=== PATIENT | female | born 1950 | race Caucasian/White ===

== ENCOUNTER → 2019-05-24 09:40 | Outpatient (CLI) | payer MEDICARE, OTHER, SELFPAY ==
[2019-05-24 10:13] LABS: BUN Creatinine Ratio 17.1 (6-22); Blood Urea Nitrogen 12 mg/dL (7-17); Estimated Glomerular Filt Rate > 60.0 mL/min (>60)
--- NOTE | 2019-05-24 10:17 | DI.CT.S_ITS ---
PROCEDURE: CT ABDOMEN PELVIS WO/W CON INDICATIONS: Personal history of diseases of urinary system. Gross hematuria TECHNIQUE: Optional 5 mm thick noncontrast images acquired from the diaphragm to the symphysis pubis. After the administration of intravenous contrast, 5 mm thick images acquired from the diaphragm to the symphysis pubis after a 10-minute delay. 2 mm thick coronal and sagittal reformats were then performed of the kidneys and ureters. For radiation dose reduction, the following was used: automated exposure control, adjustment of mA and/or kV according to patient size. COMPARISON: Outside Film, CT, CT IVP, 06/21/2018, 14:49. FINDINGS: Image quality: Excellent. Lung bases: Lung bases are clear. Heart size is normal. Urinary system: Both kidneys are normal in size, without hydronephrosis or nephrolithiasis on pre-contrast images. No perinephric fat stranding. There is normal bilateral renal enhancement. Renal calyces appear normal in morphology when filled with contrast. Opacified portions of both ureters demonstrate normal caliber. Bladder wall thickness is normal overall, but at the anterior midline of the bladder wall there is slight nodularity, most convincingly demonstrated on the axial postcontrast imaging centered on series 3 image 146. No calcified bladder stones. Other solid organs: Liver is normal in size and enhancement. Gallbladder has been previously resected. Biliary system is non dilated. Pancreas enhances normally. Spleen is normal in size and enhancement. No adrenal nodules. Peritoneum and bowel: Bowel loops demonstrate normal wall thickness and caliber. No free fluid or air. Nodes and vessels: No retroperitoneal or mesenteric adenopathy by size criteria. Aorta and inferior vena cava are normal in size. Abdominal wall: No ventral hernias. Pelvis: No pathologic free pelvic fluid. No inguinal hernias or adenopathy. Bones: No suspicious bony lesions. No vertebral body compression fractures. IMPRESSION: The urinary tract appears free of calculus. A renal cortical mass lesion is not found. Along the anterior midline of the bladder there is slight irregularity with nodularity measuring up to 6 x 8 mm in this area. Depending on the clinical status followup by direct visualization of this region by cystoscopy may be warranted. Dictated by: Isai Kelly M.D. on 05/24/2019 at 12:06 Approved by: Isai Kelly M.D. on 05/24/2019 at 12:12
== END ==
PROVIDERS: PCP Family Medicine; Visit Provider Urology
DX: R31.0 Gross hematuria (principal); Z87.448 Personal history of other diseases of urinary system; Z90.49 Acquired absence of other specified parts of digestive tract
CPT/HCPCS: 36415; 74178; 82565; 84520; Q9967

== ENCOUNTER 2021-10-23 11:12 | Outpatient (CLI) | payer MEDICARE, OTHER, SELFPAY | END 2021-10-27 09:12 | disposition home or self-care (01) | LOC: PHYS 11:15 | PROVIDERS: Family Provider Physician Assistant; PCP Physician Assistant; Referring Provider Physician Assistant; Visit Provider Physician Assistant | DX: M79.605 Pain in left leg (principal) | CPT/HCPCS: 95886; 95909 ==

== ENCOUNTER → 2022-03-13 10:03 | Outpatient (CLI) | payer MEDICARE, OTHER, SELFPAY ==
[2022-03-13 11:15] LABS: COVID19 -Nasal RAPID Negative (Negative)
== END ==
PROVIDERS: Family Provider Physician Assistant; PCP Physician Assistant; Visit Provider Surgery
DX: Z01.812 Encounter for preprocedural laboratory examination (principal); Z20.822 Contact with and (suspected) exposure to COVID-19
CPT/HCPCS: 87635; C9803

== ENCOUNTER 2022-03-16 07:41 | Day surgery (SDC) | payer MEDICARE, OTHER, SELFPAY ==
--- NOTE | 2022-03-16 | PATH_ITS ---
[facility] Accession Number: [id number] . 01 Material submitted: . colon - COLON BIOPSIES . 01 Diagnosis: Colon, Biopsy: Colonic mucosa with benign lymphoid aggregates. No evidence of colitis. No dysplasia or malignancy. MRV 03/19/2022 1402 Local . 01 Electronically signed: . Veena Benitez MD, Pathologist NPI- [id number] . 01 Gross description: . The specimen is received in formalin, labeled with the patient's name and colon biopsies, and consists of a single irregular ordonez soft tissue fragment measuring 0.4 cm in greatest dimension. Submitted entirely in cassette A1. ([id number]) /FRR 03/19/2022 0323 Local . 01 Pathologist provided ICD-10: K59.00, K63.89, R19.7 . 01 CPT . 761167 Specimen Comment: A courtesy copy of this report has been sent to [phone] Performed at: 01 [facility] [address] [place] [address], [place], [place] [id number] MD Andi Paige MD Phone: [phone]
[2022-03-16 08:01] VITALS: BMI 22.9
[2022-03-16 08:16] VITALS: BP 147/84; PULSE 68; RESP 18; TEMP 36.9; O2SAT 98
[2022-03-16] MEDS: SODIUM CHLORIDE 0.9% 1,000 ML 84 ML IV (08:38)
--- NOTE | 2022-03-16 08:41 | PM.HP.1 ---
History of Present Illness History of Present Illness Date Patient Seen: 03/16/22 Time Patient Seen: 08:41 Chief complaint: Colonoscopy Narrative: Diarrhea Patient History Family & Social History Social History: household members spouse Tobacco & Substance use: Smoking Status Former smoker alcohol intake current alcohol intake frequency 0-2 drinks per day Substance Use Type does not use Meds Home Medications and Allergies Home Medications Medication Instructions Recorded Confirmed Type albuterol sulfate 90 mcg/actuation 1 - 2 puff INH Q4-6H PRN ##0 07/20/12 03/16/22 History aerosol inhaler (Ventolin HFA) Fluticasone Propionate (FLONASE) 1 spray intranasal BID ##1 07/21/12 03/16/22 Rx cholecalciferol (vitamin D3) 50 2,000 unit PO QDAY ##0 07/21/12 03/16/22 History mcg (2,000 unit) capsule (Vitamin D3) simvastatin 10 mg tablet (Zocor) 10 mg PO HS ##90 07/21/12 03/16/22 Rx LEVOTHYROXINE SODIUM (SYNTHROID) 0.05 mg PO QDAY ##90 09/15/12 03/16/22 Rx zolpidem 5 mg tablet 5 mg PO SEE INSTRUCTIONS ##20 09/15/12 03/16/22 Rx Allergies Allergy/AdvReac Type Severity Reaction Status Date / Time No Known Drug Allergies Allergy Verified 03/16/22 08:11 Review of Systems Review of Systems ROS: Yes All systems reviewed with the patient and are negative except as otherwise documented Exam Vital Signs (past 8 hours): - 03/16/22 08:16 Temperature 98.5 F Pulse Rate 68 Respiratory Rate 18 Blood Pressure 147/84 H Pulse Oximetry 98 Oxygen Delivery Method Room Air Oxygen Delivery Method Room Air Const General: cooperative HENMT Head: normal to inspection Eyes General: appearance normal, both eyes and all related structures Neck Neck: normal visual inspection Chest Chest: normal inspection of the chest Resp Effort & Inspection: normal respiratory effort Cardio Rate: regular rate GI Inspection: normal to inspection Skin General: no rashes or lesions noted Neuro General: patient alert and patient awake Extrem General: normal to inspection and no pedal edema Psych Appearance: grossly normal Assessment & Plan Assessment & Plan narrative: 71-year-old with diarrhea. Colonoscopy is pursued. Time Spent With Patient Critical Care time: I spent a total of [] minutes of critical care time on this patient's care today; this time is exclusive of procedural time.
--- NOTE | 2022-03-16 08:56 | PM.PREOP ---
Pre-operative Note COVID-19 COVID-19 status: Negative Result date/Date tested (Pos, Neg/Pending): 03/13/22 Criteria for continued procedure: Possibility delay results in more complex future surgery or treatment Interval Note History & Physical reviewed/Exam performed by Physician: Yes Changes to H&P: No ASA Class (for procedural sedation): II
--- NOTE | 2022-03-16 09:34 | PM.OP.COLON ---
Operative Date/Time/Diagnoses Date of procedure: 03/16/22 Time of procedure: 09:34
--- NOTE | 2022-03-16 09:34 | PM.OP.COLON ---
Operative Date/Time/Diagnoses Date of procedure: 03/16/22 Time of procedure: 09:34 Pre-op diagnosis: Diarrhea Post-op diagnosis: same Procedure & Clinicians Study performed: Colonoscopy with biopsies Same procedure as scheduled: Yes Indications: Diarrhea Surgeon: Osiel Guerrero Procedure Notes SCOAP/Timeout: Done Procedure in detail: After the risks and benefits were explained, written and verbal informed consent was obtained. The patient was brought into the procedure room and placed into the left lateral decubitus position. Please see nurse senior managing director notes for sedation details. Digital rectal examination was accomplished. The scope was introduced into the patient and advanced under direct visualization to the cecum as identified by the appendiceal orifice and ileocecal valve. The scope was slowly withdrawn to carefully examine the mucosa for any defects or lesions. Comprehensive imaging was accomplished throughout the rectum including the dentate line. The colon was decompressed, the scope was then removed from the patient who tolerated the procedure well. Pediatric colonoscope Bowel prep adequate Scope withdrawal time: 6 minutes Sedation minutes: 15 Complications: none Impression: The patient had a very tortuous sigmoid colon. The patient had extensive diverticulosis throughout the sigmoid with both large and small diverticula. I did not appreciate any colitis throughout. Random colon biopsies were taken for exclusion of microscopic disease. It was very difficult to obtain cecal intubation secondary to scope looping and I therefore could not easily navigate up into the terminal ileum today. Grade 1 hemorrhoids were noted on rectal exam. Endoscopic diagnosis 1. Extensive sigmoid diverticulosis extending into the transverse colon. 2. Tortuous right colon 3. Grade 1 hemorrhoids. Post-procedure Plan for aftercare: 1. Await histopathology. 2. Fiber based bowel regimen is emphasized to improve stool regularity. Disposition: PACU
[2022-03-16 09:35] VITALS: BP 108/71; PULSE 64; RESP 19; TEMP 36.6; O2SAT 97
[2022-03-16 09:41] VITALS: BP 99/69; PULSE 63; RESP 21; O2SAT 93
[2022-03-16 09:45] VITALS: BP 117/69; PULSE 61; RESP 14; O2SAT 94
[2022-03-16 09:50] VITALS: BP 114/74; PULSE 59; RESP 12; O2SAT 98
== END 2022-03-16 10:05 | disposition home or self-care (01) ==
PROVIDERS: Family Provider Physician Assistant; PCP Physician Assistant; Referring Provider Internal Medicine Gastroenterology; Visit Provider Internal Medicine Gastroenterology
PROC: 0DJD8ZZ Inspection of Lower Intestinal Tract, Via Natural or Artificial Opening Endoscopic (ICD-10-PCS; CPT 45378; principal; 2022-03-16 09:00)
DX: R19.7 Diarrhea, unspecified (principal); K64.0 First degree hemorrhoids; K57.30 Diverticulosis of large intestine without perforation or abscess without bleeding
CPT/HCPCS: 45380; J2704

== ENCOUNTER → 2025-03-21 12:13 | Outpatient (CLI) | payer MEDICARE, OTHER, SELFPAY ==
[2025-03-21 13:15] LABS: Vitamin D 25 Hydroxy (D3) 17.8 ng/mL (30.0-100.0)
[2025-03-21 13:49] LABS: Vitamin B12 840 pg/mL (239-931)
== END ==
PROVIDERS: Family Provider Physician Assistant; PCP Family Medicine; Referring Provider Family Medicine; Visit Provider Family Medicine
DX: E55.9 Vitamin D deficiency, unspecified (principal); E53.8 Deficiency of other specified B group vitamins; R53.82 Chronic fatigue, unspecified; E78.5 Hyperlipidemia, unspecified; E03.9 Hypothyroidism, unspecified
CPT/HCPCS: 36415; 82306; 82607